=== PATIENT | male | born 2000 | race Caucasian/White ===

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

== ENCOUNTER 2021-02-05 12:17 | Emergency (ER) | payer OTHER ==
[~2021-02-05] VITALS: Ht 167.6 cm; Wt 83.8 kg
--- NOTE | 2021-02-05 13:59 | REP ---
INDICATION: pain mid tibia (hx osteochondroma) COMPARISON: None. TECHNIQUE: AP and lateral left lower leg. FINDINGS: There is no acute fracture or dislocation. There is an osteochondroma of the proximal fibula. This extends medially and abuts the shaft of the proximal tibia. There is smooth cortical erosion at that location of the posterior tibial shaft. The osteochondroma measures approximately 8 x 4 cm. IMPRESSION: No fracture or dislocation. Osteochondroma of the proximal fibula measures 8 x 4 mm. This extends medially and abuts the posterior proximal tibia with smooth cortical erosion of the proximal tibia at that location. <Electronically signed by Steven Hargrove > 02/05/21 [id number]
[2021-02-05] MEDS ORDERED: ULTR50TA8 PO (14:30)
[2021-02-05 14:38] VITALS: BP 138/68
== END 2021-02-05 14:41 | disposition home or self-care (01) ==
LOC: M ED 12:17
DX: M79.605 Pain in left leg (principal); D16.20 Benign neoplasm of long bones of unspecified lower limb

== ENCOUNTER → 2024-12-29 | Outpatient (REF) | payer BC ==
[~2024-12-29] MED LIST: ULTR50TA8 PO
[2024-12-29 16:00] LABS: RSV AMPLIFICATION NEGATIVE (NEGATIVE)
== END ==
LOC: M LAB REF 15:06
PROVIDERS: ATTEND Physician Assistant Medical
DX: B34.9 Viral infection, unspecified (principal)